=== PATIENT | female | born 1995 | race American Indian/Alaskan Native ===

== ENCOUNTER 2020-07-20 08:46 | Emergency (ER) | payer SELFPAY ==
[2020-07-20] MEDS ORDERED: HYDROcodone/ACETAMINOPHEN 5-325 MG TAB PO ONE (15:56)
[2020-07-20] MEDS ORDERED: KETOROLAC 60 MG/2 ML INJ IM ONE (15:56)
--- NOTE | 2020-07-20 16:42 | Emergency Department Report ---
ED Extremity Problem HPI - General Chief complaint: Extremity Injury, Upper Stated complaint: ARM PAINS RT Time Seen by Provider: 07/20/20 15:40 Source: patient Mode of arrival: Ambulatory Limitations: No Limitations - History of Present Illness Initial comments: Patient is a 25-year-old female presents emergency room with complaints of right elbow pain and swelling that began yesterday She states that she also noticed swelling in her right hand but denies any pain in her hand. She denies any fall. she states that it began last night after she rolled over in bed onto her arm and felt a sharp pain. She denies any abrasions or being bit by anything. She denies any numbness or weakness. She has pain with movement. She denies any fever, chills, nausea, vomiting, diarrhea, rash. She denies any recent travel. she denies any sore throat, vaginal discharge or itching/burning, states only one sexual partner in 6 months, denies any hx of STDs, denies any possibility of . No past medical history. She has an allergy to penicillin. Last menstrual cycle 2 weeks ago. Severity scale (0 -10): 10 - Related Data Previous Rx's Medication Instructions Recorded Last Taken Type Famotidine [Pepcid] 20 mg PO BID #20 tablet 08/15/16 Unknown Rx diphenhydrAMINE [Benadryl CAP] 25 mg PO Q6HR PRN #25 capsule 08/15/16 Unknown Rx methylPREDNISolone [Medrol] 4 mg PO DAILY #1 tab.ds.pk 08/15/16 Unknown Rx Acetaminophen/Codeine [Tylenol 1 tab PO Q6H PRN #10 tab 07/20/20 Unknown Rx /Codeine # 3 tab] Naproxen [EC-Naprosyn] 500 mg PO BID PRN #14 tablet.dr 07/20/20 Unknown Rx Allergies Allergy/AdvReac Type Severity Reaction Status Date / Time Penicillins Allergy Swelling Verified 07/20/20 10:10 ED Review of Systems ROS: Stated complaint: ARM PAINS RT Other details as noted in HPI Comment: All other systems reviewed and negative ED Past Medical Hx - Past Medical History Previous Medical History?: No - Surgical History Past Surgical History?: No - Social History Smoking Status: Never Smoker Substance Use Type: None - Medications Home Medications: Home Medications Medication Instructions Recorded Confirmed Last Taken Type Famotidine [Pepcid] 20 mg PO BID #20 tablet 08/15/16 Unknown Rx diphenhydrAMINE [Benadryl CAP] 25 mg PO Q6HR PRN #25 capsule 08/15/16 Unknown Rx methylPREDNISolone [Medrol] 4 mg PO DAILY #1 tab.ds.pk 08/15/16 Unknown Rx Acetaminophen/Codeine [Tylenol 1 tab PO Q6H PRN #10 tab 07/20/20 Unknown Rx /Codeine # 3 tab] Naproxen [EC-Naprosyn] 500 mg PO BID PRN #14 tablet.dr 07/20/20 Unknown Rx ED Physical Exam - General Limitations: No Limitations General appearance: alert, in no apparent distress - Head Head exam: Present: atraumatic, normocephalic - Eye Eye exam: Present: normal appearance - ENT ENT exam: Present: mucous membranes moist - Respiratory Respiratory exam: Absent: respiratory distress, accessory muscle use - Extremities Exam Extremities exam: Present: other (ttp and very mild edema to the right elbow, no increased warmth, no erythema, no skin changes, generalized ttp of the right el bow, mild edema of the right hand, no ttp of the right hand, no increased warmth or erythema of the right hand, normal ROM Of the right hand, decreased ROM of the right elbow, pt is able to partially flex the elbow but not fully secondary to pain, neurovascularly intact) - Neurological Exam Neurological exam: Present: alert, oriented X3 - Psychiatric Psychiatric exam: Present: normal affect, normal mood - Skin Skin exam: Present: warm, dry, intact ED Course Vital Signs 07/20/20 07/20/20 10:10 17:44 Temperature 98.4 F Pulse Rate 97 H 88 Respiratory 18 18 Rate Blood Pressure 121/74 114/77 [Right] O2 Sat by Pulse 100 99 Oximetry ED Medical Decision Making - Lab Data Result diagrams: 07/20/20 16:21 07/20/20 16:21 Lab Results 07/20/20 07/20/20 Range/Units 16:21 16:21 WBC 8.3 (4.5-11.0) K/mm3 RBC 5.20 H (3.65-5.03) M/mm3 Hgb 11.8 (10.1-14.3) gm/dl Hct 36.9 (30.3-42.9) % MCV 71 L (79-97) fl MCH 23 L (28-32) pg MCHC 32 (30-34) % RDW 16.2 H (13.2-15.2) % Plt Count 384 (140-440) K/mm3 Lymph % (Auto) 20.7 (13.4-35.0) % [place] % (Auto) 8.0 H (0.0-7.3) % Eos % (Auto) 5.0 H (0.0-4.3) % Baso % (Auto) 0.5 (0.0-1.8) % Lymph # (Auto) 1.7 (1.2-5.4) K/mm3 [place] # (Auto) 0.7 (0.0-0.8) K/mm3 Eos # (Auto) 0.4 (0.0-0.4) K/mm3 Baso # (Auto) 0.0 (0.0-0.1) K/mm3 Seg Neutrophils % 65.8 (40.0-70.0) % Seg Neutrophils # 5.5 (1.8-7.7) K/mm3 Sodium 137 (137-145) mmol/L Potassium 4.0 (3.6-5.0) mmol/L Chloride 100.3 (98-107) mmol/L Carbon Dioxide 25 (22-30) mmol/L Anion Gap 16 mmol/L BUN 8 (7-17) mg/dL Creatinine 0.5 L (0.6-1.2) mg/dL Estimated GFR > 60 ml/min BUN/Creatinine Ratio 16 % Glucose 74 (65-100) mg/dL Uric Acid 3.3 L (3.5-7.6) mg/dL Calcium 9.8 (8.4-10.2) mg/dL Total Bilirubin 0.40 (0.1-1.2) mg/dL AST 21 (5-40) units/L ALT 27 (7-56) units/L Alkaline Phosphatase 74 (35-129) units/L C-Reactive Protein 0.60 (0.00-1.30) mg/dL Total Protein 8.2 (6.3-8.2) g/dL Albumin 4.5 (3.9-5) g/dL Albumin/Globulin Ratio 1.2 % - Radiology Data Radiology results: report reviewed RIGHT ELBOW 3 VIEWS INDICATION / CLINICAL INFORMATION: right elbow pain. COMPARISON: None available. FINDINGS: BONES/JOINT(S): No acute fracture or subluxation. Small enthesophyte arising from the olecranon. SOFT TISSUES: Mild soft tissue swelling dorsal elbow. ADDITIONAL FINDINGS: None. Signer Name: Matti Ba MD Signed: 07/20/2020 4:46 PM Workstation Name: [id number] Transcribed By: JUNE Dictated By: Matti Ba MD Electronically Authenticated By: Matti Ba MD Signed Date/Time: 07/20/201645 DD/ 44 TD/TT: - Medical Decision Making Patient is a 25-year-old female presents emergency room with complaints of right elbow pain and swelling that began yesterday She states that she also noticed swelling in her right hand but denies any pain in her hand. She denies any fall. she states that it began last night after she rolled over in bed onto her arm and felt a sharp pain. She denies any abrasions or being bit by anything. She denies any numbness or weakness. She has pain with movement. She denies any fever, chills, nausea, vomiting, diarrhea, rash. She denies any recent travel. she denies any sore throat, vaginal discharge or itching/burning, states only one sexual partner in 6 months, denies any hx of STDs, denies any possibility of . No past medical history. She has an allergy to penicillin. Last menstrual cycle 2 weeks ago. on exam: ttp and very mild edema to the right elbow, no increased warmth, no erythema, no skin changes, general ized ttp of the right elbow, mild edema of the right hand, no ttp of the right hand, no increased warmth or erythema of the right hand, normal ROM Of the right hand, decreased ROM of the right elbow, pt is able to partially flex the elbow but not fully secondary to pain, neurovascularly intact. labs are normal. XR right elbow: BONES/JOINT(S): No acute fracture or subluxation. Small enthesophyte arising from the olecranon. SOFT TISSUES: Mild soft tissue swelling dorsal elbow. ADDITIONAL FINDINGS: None. Discussed case with Dr. Karolina Thompson, ER attending who evaluated patient at bedside and believes most likely due to tendon/muscle injury, advised to place patient in sling and have patient follow- up with orthopedic doctor. Discussed all results with patient and answered questions. Patient placed in a sling by nurse and remained neurovascularly intact. Patient given prescription for naproxen and Tylenol with codeine. Advised patient to please take medication as prescribed as needed. Do not drive or operate machinery while taking pain medication. May use ice for 15 minutes at a time, rest, elevation of the arm. Follow-up with orthopedic doctor. It is very importantly follow-up. Return to emergency room for any new or worsening symptoms. - Differential Diagnosis Strain, sprain, fx, dislocation, gout, arthropathy, tendinitis, bursitis Critical care attestation.: If time is entered above; I have spent that time in minutes in the direct care of this critically ill patient, excluding procedure time. ED Disposition Clinical Impression: Right elbow pain Disposition: DC-01 TO HOME OR SELFCARE Is pt being admited?: No Does the pt Need Aspirin: No Condition: Stable Instructions: Tendinitis, Muscle Strain, [id number] Additional Instructions: please take medication as prescribed as needed. Do not drive or operate machinery while taking pain medication. May use ice for 15 minutes at a time, rest, elevation of the arm. Follow-up with orthopedic doctor. It is very importantly follow-up. Return to emergency room for any new or worsening symptoms. Prescriptions: Naproxen [EC-Naprosyn] 500 mg PO BID PRN #14 tablet.dr PRN Reason: pain Acetaminophen/Codeine [Tylenol /Codeine # 3 tab] 1 tab PO Q6H PRN #10 tab PRN Reason: pain Referrals: [facility] [Primary Care Provider] - 2-3 Days ALLAN MARIN MD [Staff Physician] - 2-3 Days [facility] [Provider Group] - 2-3 Days Forms: Work/School Release Form(ED) Time of Disposition: 17:27 Print Language: GERMAN
--- NOTE | 2020-07-20 16:51 | XRay Report ---
RIGHT ELBOW 3 VIEWS INDICATION / CLINICAL INFORMATION: right elbow pain. COMPARISON: None available. FINDINGS: BONES/JOINT(S): No acute fracture or subluxation. Small enthesophyte arising from the olecranon. SOFT TISSUES: Mild soft tissue swelling dorsal elbow. ADDITIONAL FINDINGS: None. Signer Name: Matti Ba MD Signed: 07/20/2020 4:46 PM Workstation Name: [id number]
[2020-07-20 17:03] LABS: Basophils % (Auto) 0.5 % (0.0-1.8); Eosinophils # (Auto) 0.4 K/mm3 (0.0-0.4); Hematocrit 36.9 % (30.3-42.9); Hemoglobin 11.8 gm/dl (10.1-14.3); Lymphocytes # (Auto) 1.7 K/mm3 (1.2-5.4); Lymphocytes % (Auto) 20.7 % (13.4-35.0); Mean Corpuscular HGB Conc 32 % (30-34); Mean Corpuscular Volume 71 fl (79-97); Monocytes # (Auto) 0.7 K/mm3 (0.0-0.8); Platelet Count 384 K/mm3 (140-440); Red Cell Distribution Width 16.2 % (13.2-15.2)
[2020-07-20 17:05] LABS: Alanine Aminotransferase 27 units/L (7-56); Albumin 4.5 g/dL (3.9-5); Blood Urea Nitrogen 8 mg/dL (7-17); Calcium 9.8 mg/dL (8.4-10.2); Hemolysis Index 12; Uric Acid 3.3 mg/dL (3.5-7.6)
[2020-07-20 17:09] LABS: BUN/Creatinine Ratio 16
--- NOTE | 2020-07-20 17:09 | Event Note ---
Date: 07/20/20 The patient was evaluated in the emergency department for symptoms described in the history of present illness. He/she was evaluated in the context of the global COVID-19 pandemic, which necessitated consideration that the patient might be at risk for infection with the virus that causes COVID-19. Institutional protocols and algorithms that pertain to the evaluation of patients at risk for COVID-19 are in a state of rapid change based on information released by regulatory bodies including the CDC and federal and state organizations. These policies and algorithms were followed during the patient's care in the emergency department. Please note that these policies, procedures and recommendations changed on a rapid basis. Patient is a 25-year-old female, who is right-hand dominant, who presents with right lateral elbow pain, that moves down her right lateral forearm, and a swelling and snapping sensation over the right lateral elbow, after she accidentally rolled over the right side of her arm. She is afebrile, with reassuring vital signs, acid range of motion is mostly intact in the right elbow, there is no redness, warmth, pus, or streaking. She has reproducible right lateral elbow tenderness, there is mild crepitus noted. We suspect that the patient has a partial muscular versus tendon violation, no neurovascular deficits or compromise. Her examination and presentation are not consistent or suggestive of a septic joint. X-ray and laboratory studies were ordered, they are reviewed and appreciated. The patient states that she is right-hand dominant. Rest, ice, compression, elevation, sling, outpatient orthopedics follow-up. Discussed this with the patient and physician licensed occupational therapy assistant, who are in agreement with this plan of care. Vital Signs 07/20/20 07/20/20 10:10 17:44 Temperature 98.4 F Pulse Rate 97 H 88 Respiratory 18 18 Rate Blood Pressure 121/74 114/77 [Right] O2 Sat by Pulse 100 99 Oximetry Lab Results 07/20/20 07/20/20 Range/Units 16:21 16:21 WBC 8.3 (4.5-11.0) K/mm3 RBC 5.20 H (3.65-5.03) M/mm3 Hgb 11.8 (10.1-14.3) gm/dl Hct 36.9 (30.3-42.9) % MCV 71 L (79-97) fl MCH 23 L (28-32) pg MCHC 32 (30-34) % RDW 16.2 H (13.2-15.2) % Plt Count 384 (140-440) K/mm3 Lymph % (Auto) 20.7 (13.4-35.0) % [place] % (Auto) 8.0 H (0.0-7.3) % Eos % (Auto) 5.0 H (0.0-4.3) % Baso % (Auto) 0.5 (0.0-1.8) % Lymph # (Auto) 1.7 (1.2-5.4) K/mm3 [place] # (Auto) 0.7 (0.0-0.8) K/mm3 Eos # (Auto) 0.4 (0.0-0.4) K/mm3 Baso # (Auto) 0.0 (0.0-0.1) K/mm3 Seg Neutrophils % 65.8 (40.0-70.0) % Seg Neutrophils # 5.5 (1.8-7.7) K/mm3 Sodium 137 (137-145) mmol/L Potassium 4.0 (3.6-5.0) mmol/L Chloride 100.3 (98-107) mmol/L Carbon Dioxide 25 (22-30) mmol/L Anion Gap 16 mmol/L BUN 8 (7-17) mg/dL Creatinine 0.5 L (0.6-1.2) mg/dL Estimated GFR > 60 ml/min BUN/Creatinine Ratio 16 % Glucose 74 (65-100) mg/dL Uric Acid 3.3 L (3.5-7.6) mg/dL Calcium 9.8 (8.4-10.2) mg/dL Total Bilirubin 0.40 (0.1-1.2) mg/dL AST 21 (5-40) units/L ALT 27 (7-56) units/L Alkaline Phosphatase 74 (35-129) units/L C-Reactive Protein 0.60 (0.00-1.30) mg/dL Total Protein 8.2 (6.3-8.2) g/dL Albumin 4.5 (3.9-5) g/dL Albumin/Globulin Ratio 1.2 %
[2020-07-20 17:44] VITALS: BP 114/77
== END 2020-07-20 18:01 | disposition home or self-care (01) ==
LOC: ED 08:46
DX: M25.521 Pain in right elbow (principal); R22.31 Localized swelling, mass and lump, right upper limb; Z88.0 Allergy status to penicillin
CPT/HCPCS: 36415; 73080; 80053; 84550; 85025; 86140; 96372; 99284; J1885